=== PATIENT | female | born 1950 | race Caucasian/White ===

== ENCOUNTER 2021-10-12 12:00 | Outpatient (CLI) | payer MEDICARE, SELFPAY ==
--- NOTE | ~2021-10-12 | XR_ITS ---
EXAM: XR lumbar spine min 4V DATE: 10/12/2021 12:53 HISTORY: L40.9 - Psoriasis, unspecified . COMPARISON: None available. FINDINGS: Left hip arthroplasty. 5 nonrib-bearing lumbar-type vertebral bodies. Pedicles intact. Bila teral pars defects at L4. 2 mm anterolisthesis of L4 on L5, otherwise normal vertebral body alignment . Vertebral body heights preserved. Multilevel mild disc space narrowing and marginal osteophytosis. Multilevel severe facet sclerosis and hypertrophy with interspinous narrowing in the lower lumbar spi ne. No fracture or dislocation. Fusiform dilation of the abdominal aorta up to 3.5 cm. IMPRESSION: 3.5 cm fusiform abdominal aortic aneurysm. Grade 1 anterolisthesis of L4 on L5, with bila teral pars defects at L4. Severe facet arthropathy in the lower lumbar spine. Reviewed, dictated and finalized at location K. IMPRESSION: 3.5 cm fusiform abdominal aortic aneurysm. Grade 1 anterolisthesis of L4 on L5, with bilateral pars defects at L4. Severe facet arthropathy in the lower lumbar spine.
--- NOTE | ~2021-10-12 | XR_ITS ---
EXAM: XR sacroiliac joints min 3V DATE: 10/12/2021 12:53 HISTORY: L40.9 - Psoriasis, unspecified CHRONIC PAIN . COMPARISON: None available. FINDINGS: Decreased mineralization. Lower lumbar degenerative changes. Mild sclerosis in the bilater al SI joints. No effusion. No fracture. Mild right hip osteoarthritis. Partially visualized left hip arthroplasty. IMPRESSION: Mild degenerative changes in the bilateral SI joints. Reviewed, dictated and finalized at location K.
--- NOTE | ~2021-10-12 | XR_ITS ---
EXAM: XR shoulder LT min 2V, XR shoulder RT min 2V DATE: 10/12/2021 12:53 HISTORY: L40.9 - Psoriasis, unspecified . COMPARISON: None available. FINDINGS: Decreased mineralization. No fracture or dislocation. No lytic or blastic lesion. Mild gayatri ateral AC joint hypertrophy. Severe left and mild right superior displacement of the humeral head mil d left and moderate right glenohumeral narrowing/osteophytosis. No erosion or periosteal change. Soft tissues within normal limits. IMPRESSION: Bilateral rotator cuff pathology, more severe in the left shoulder. Bilateral glenohumera l osteoarthritis, moderate on the right and mild left. Mild bilateral AC joint hypertrophy. Reviewed, dictated and finalized at location K. IMPRESSION: Bilateral rotator cuff pathology, more severe in the left shoulder. Bilateral glenohumeral osteoarthritis, moderate on the right and mild left. Mi ld bilateral AC joint hypertrophy.
--- NOTE | ~2021-10-12 | XR_ITS ---
EXAM: XR hand BI arthritis min 3V DATE: 10/12/2021 12:53 HISTORY: L40.9 - Psoriasis, unspecified . COMPARISON: None available. FINDINGS: Decreased mineralization. No fracture or dislocation. No lytic or blastic lesion. Moderate right and mild left trapeziometacarpal joint osteoarthritis. Mild joint space narrowing in the DIP j oints of both hands. No subluxation. No erosion or periosteal change. Soft tissues within normal limi ts. IMPRESSION: Osteoarthritic changes in the bilateral trapeziometacarpal joints and fingers. No radiogr aphic findings suspicious for psoriasis. Reviewed, dictated and finalized at location K. IMPRESSION: Osteoarthritic changes in the bilateral trapeziometacarpal joints a nd fingers. No radiographic findings suspicious for psoriasis.
--- NOTE | ~2021-10-12 | XR_ITS ---
XR foot RT standing 2V DATE: 10/12/2021 12:53 INDICATION: Psoriasis TECHNIQUE: Weightbearing AP and lateral views COMPARISON: None FINDINGS: Mild plantar and very prominent posterior calcaneal enthesopathy. No associated erosive chantal nge or periostitis. No fracture or dislocation, periosteal reaction or bone destruction. Joint spaces are preserved. No e rosive change is noted. IMPRESSION: Calcaneal enteropathy Reviewed, dictated and finalized at location B. IMPRESSION: Calcaneal enteropathy
--- NOTE | ~2021-10-12 | XR_ITS ---
EXAM: XR foot LT standing 2V DATE: 10/12/2021 12:53 HISTORY: L40.9 - Psoriasis, unspecified . COMPARISON: None available. FINDINGS: Decreased mineralization. No fracture or dislocation. No lytic or blastic lesion. Plantar and calcaneal enthesophytes. Loss of the longitudinal arch moderate degenerative change at the tibiot alar joint and multiple midfoot joints. No erosion or periosteal change. Soft tissues within normal l imits. IMPRESSION: Osteopenia. Plantar and calcaneal enthesophytes. Pes planus. Degenerative changes in the tibiotalar and midfoot joints. No radiographic findings of psoriasis in the foot. Reviewed, dictated and finalized at location K. IMPRESSION: Osteopenia. Plantar and calcaneal enthesophytes. Pes planus. Degene rative changes in the tibiotalar and midfoot joints. No radiographic findings o f psoriasis in the foot.
[2021-10-12 12:43] LABS: Appearance Urine Clear (Clear); Bilirubin Urine Negative (Negative); Blood Urine Negative (Negative); Color Urine Yellow (Yellow); Glucose Urine UA Negative (Negative); Ketones Urine Negative (Negative); Leukocyte Esterase Ur Negative LEU/UL (Negative); Nitrate Urine Negative (Negative); Protein Urine Negative (Negative); Specific Grav Ur 1.015 (1.001-1.035); Urobilinogen Urine 0.2 mg/dL (<2.0)
[2021-10-12 12:49] LABS: CRP < 0.5 mg/dL (<1.0)
[2021-10-12 13:20] LABS: Add Urine Microscopic? NO
[2021-10-12 15:17] LABS: Vitamin D 25 Hydroxy 42.8 ng/mL
[2021-10-18 22:41] LABS: Anti Cyclic Citrullinated Pept <16 Units (<20)
== END 2021-10-12 12:01 | disposition home or self-care (01) ==
LOC: ANHLAB 12:10
PROVIDERS: PCP Internal Medicine; Visit Provider Internal Medicine
DX: L40.9 Psoriasis, unspecified (principal); I71.4 Abdominal aortic aneurysm, without rupture; M43.16 Spondylolisthesis, lumbar region; M53.86 Other specified dorsopathies, lumbar region; M12.88 Other specific arthropathies, not elsewhere classified, other specified site; M85.89 Other specified disorders of bone density and structure, multiple sites; M21.42 Flat foot [pes planus] (acquired), left foot; M19.012 Primary osteoarthritis, left shoulder; M19.011 Primary osteoarthritis, right shoulder; M77.31 Calcaneal spur, right foot; Z71.89 Other specified counseling; Z79.899 Other long term (current) drug therapy
CPT/HCPCS: 36415; 72110; 72202; 73030; 73130; 73620; 81003; 82306; 86140; 86200; 86225